=== PATIENT | male | born 2000 | race African-American/Black ===

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

== ENCOUNTER 2021-09-13 18:27 | Emergency (ER) | payer SELFPAY ==
[~2021-09-13] VITALS: Ht 177.8 cm; Wt 60.5 kg
[~2021-09-13 18:27] MED LIST changes: +DOXY-96 PO; +HYDR-3164 PO; -HYDR-971 PO
[2021-09-13 19:00] VITALS: BP 102/60
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
[2021-09-13] MEDS ORDERED: OXYC1TAB15 PO (19:53)
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
== END 2021-09-13 20:36 | disposition home or self-care (01) ==
LOC: ER 18:27
DX: M79.604 Pain in right leg (principal); F17.200 Nicotine dependence, unspecified, uncomplicated
CPT/HCPCS: 73590; 99283

== ENCOUNTER 2021-10-11 09:02 | Emergency (ER) | payer SELFPAY ==
[~2021-10-11] VITALS: Ht 177.8 cm; Wt 60.2 kg
[~2021-10-11 09:02] MED LIST changes: +OXYC1TAB15 PO
[2021-10-11] MEDS ORDERED: DEXAMETHASONE 4 MG TABLET PO ONE (09:30)
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
[2021-10-11 10:31] VITALS: BP 106/65
== END 2021-10-11 10:42 | disposition home or self-care (01) ==
LOC: ER 09:02
DX: J02.9 Acute pharyngitis, unspecified (principal); R05.9 Cough, unspecified; F17.200 Nicotine dependence, unspecified, uncomplicated
CPT/HCPCS: 87070; 87880; 99283

== ENCOUNTER 2021-12-02 16:27 | Emergency (ER) | payer OTHER ==
[~2021-12-02] VITALS: Ht 177.8 cm; Wt 61.0 kg
[2021-12-02 17:00] VITALS: BP 147/68
[2021-12-02] MEDS ORDERED: LIDOCAINE WITH 8.4% SOD BICARB 3 ML DISP.SYRIN. INJ ONE (17:45)
[2021-12-02] MEDS ORDERED: HYDR-2761 PO (19:03)
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
== END 2021-12-02 19:36 | disposition home or self-care (01) ==
LOC: ER 16:27
DX: S01.511A Laceration without foreign body of lip, initial encounter (principal); Y04.0XXA Assault by unarmed brawl or fight, initial encounter; Y93.89 Activity, other specified; Y92.89 Other specified places as the place of occurrence of the external cause; Y99.8 Other external cause status
CPT/HCPCS: 12011; 99283; J3490